=== PATIENT | male | born 1980 | race African-American/Black ===

== ENCOUNTER 2022-06-14 10:31 | Emergency (ER) | payer BC ==
--- OUTSIDE RECORDS SUMMARY | 2022-06-14 10:37 | XMS REPORT | Continuity of Care Document ---
:1980 Author Organization [facility] t Address [address] [place] [address] Care Team Providers Name Role Phone FALLON DAVIS Primary Care Physician Unavailable Only, Ang Db Test Attending Clinician Unavailable Venice Packer MD Attending Clinician VENICE PACKER Attending Clinician Unavailable Doctor Unassigned, [place] Attending Clinician Unavailable Payers Payer Name Policy Type Policy Number Effective Date Expiration Date S ource Problems This patient has no known problems. Allergies, Adverse Reactions, Alerts Allergy Allergy Status Severity Reaction(s) Onset Inactive Treating Comm ents Source Name Type Date Date Clinician NO KNOWN Drug Active Univers ALLERGIE Class ity of [facility] Social History Social Habit Start Date Stop Date Quantity Comments Source Exposure to Yes [facility] SARS-CoV-2 (event) Medica l Branch Alcohol intake 2015-05-28 2015-05-28 [facility] 00:00:00 00:00:00 [facility] Branch Sex Ass[birth year] At [birth year] [facility] 00:00:00 00:00:00 Medical Branch Smoking Status Start Date Stop Date Source Current some day smoker 2015-05-28 00:00:00 [facility] Medications Ordered Filled Start Stop Current Ordering Indication Dosage Frequency Signature Comments Components Source Medication Medication Date Date Medication? Clinician (SIG) Name Name levofloxaci Yes 500mg Take 1 Tab Univers n 2-02 by mouth ity of (LEVAQUIN) 00:00: every 24 Jaime as 500 mg 00 (twenty-fo Medical tablet ur) hours. Branch ibuprofen 2016-0 Yes 600mg Take 1 Tab U nivers (MOTRIN) 2-02 by mouth ity of 600 mg 00:00: every 8 [place] tablet 00 (eight) Medical hours as Branch needed for Pain (scale 4-6). mupirocin 2016-0 Yes Apply to [facility] ers (BACTROBAN 2-02 area(s) 3 ity of OINT) 2 % 00:00: (three) [place] ointment 00 times Medical daily. Branch levofloxaci 2016-0 Yes 500mg Take 1 Tab Univers n 2-02 by mouth ity of (LEVAQUIN) 00:00: every 24 Jaime as 500 mg 00 (twenty-fo Medical tablet ur) hours. Branch ibuprofen 2016-0 Yes 600mg Take 1 Tab U nivers (MOTRIN) 2-02 by mouth ity of 600 mg 00:00: every 8 [place] tablet 00 (eight) Medical hours as Branch needed for Pain (scale 4-6). mupirocin 2016-0 Yes Apply to [facility] ers (BACTROBAN 2-02 area(s) 3 ity of OINT) 2 % 00:00: (three) [place] ointment 00 times Medical daily. Branch levofloxaci 2016-0 Yes 500mg Take 1 Tab Univers n 2-02 by mouth ity of (LEVAQUIN) 00:00: every 24 Jaime as 500 mg 00 (twenty-fo Medical tablet ur) hours. Branch ibuprofen 2016-0 Yes 600mg Take 1 Tab U nivers (MOTRIN) 2-02 by mouth ity of 600 mg 00:00: every 8 [place] tablet 00 (eight) Medical hours as Branch needed for Pain (scale 4-6). mupirocin 2016-0 Yes Apply to [facility] ers (BACTROBAN 2-02 area(s) 3 ity of OINT) 2 % 00:00: (three) [place] ointment 00 times Medical daily. Branch Procedures Procedure Date / Time Performed Performing Clinician [facility] e CONSENT/REFUSAL FOR 2020-12-30 21:55:32 Doctor Unassigned, No [facility] DIAGNOSIS AND Name Medical Branch TREATMENT ASSIGNMENT OF BENEFITS 2020-12-30 21:55:21 Doctor Unassigned, No [facility] Medical Branch Encounters Start End Encounter Admission Attending Care Care Encounter Source Date/Time Date/Time Type Type Clinicians Facility Department ID 2021-04-29 2021-04-29 Outpatient R [facility] [id number] Univers 18:45:00 18:45:00 [id number] ity of [facility] 2020-12-30 2020-12-30 Laboratory Only, Ang Db Test [facility] [id number] Univers 16:56:13 17:11:13 Only Venice Packer [facility] [id number] ity of [place] [id number] Jaime as Arturo?Blea [id number] Sc dical [address] Medical Office Building 2020-12-30 2020-12-30 Outpatient R BIRDIE [facility] [id number] Univers 17:00:00 17:00:00 VENICE ity [facility] 2020-12-30 2020-12-30 Orders Doctor DEONTE [id number] Univers 00:00:00 00:00:00 Only Unassigned, NITA [id number] ity of [place] [facility] [id number] Jaime as [phone] [facility] 009 Branch Results This patient has no known results.
--- NOTE | 2022-06-14 11:48 | RAD REPORT ---
EXAM DESCRIPTION: CT - Stone Protocol - 06/14/2022 11:19 am CLINICAL HISTORY: Left flank pain COMPARISON: 2017 TECHNIQUE: Computed axial tomography of the abdomen pelvis was obtained without oral or IV contrast. Lack of IV and oral contrast limits evaluation of solid organs, appendix, bowel, and vessels. Askew l reformatted images were obtained and reviewed. All CT scans are performed using dose optimization technique as appropriate and may include automated exposure control or mA/KV adjustment according to patient size. FINDINGS: A renal calculus is not seen. An ureteral calculus is not noted. A bladder calculus is not present. No hydrocephalus The liver, spleen, pancreas and adrenals appear grossly normal There is no evidence of diverticulitis. The appendix appears normal Small left inguinal hernia contains fat IMPRESSION: Negative for a genitourinary calculus
[2022-06-14 11:58] LABS: Urine Blood Negative (Negative); Urine Glucose Negative (Negative); Urine Protein Trace (Negative); Urine Specific Gravity 1.025 (1.005-1.030); Urine pH 6.5 (5.0-7.0)
--- NOTE | 2022-06-14 12:05 | EDPHYS ---
Physician Documentation [facility] Name: Michele Dewey Age: 41 yrs Sex: Male : 1980 Arrival Date: 06/14/2022 Time: 10:36 Bed IW5 Private MD: ED Physician Wilner Barr HPI: 06/14 12:03 This 41 yrs old Black Male presents to ER via Ambulatory with complaints of Flank Pain. kb 12:03 The patient complains of pain in the left flank. The pain does not radiate. Onset: The kb symptoms/episode began/occurred last night. Modifying factors: The symptoms are alleviated by remaining still, the symptoms are aggravated by movement, palpation/percussion. Associated signs and symptoms: The patient has no apparent associated signs or symptoms. Severity of pain: At its worst the pain was moderate in the emergency department the pain is unchanged. The patient has not experienced similar symptoms in the past. The patient has not recently seen a physician. Historical: - Allergies: 11:22 NKDA; jl7 - Home Meds: 11:22 None [Active]; jl7 - PMHx: 11:22 None; jl7 - PSHx: 11:22 Right knee; jl7 - Immunization history:: Client reports having NOT received the Covid vaccine. - Social history:: Smoking status: Reported history of juuling and/or vaping. ROS: 11:59 Constitutional: Negative for fever, chills, and weight loss. kb 11:59 Back: Positive for flank pain, on the left. 11:59 All other systems are negative. Exam: 11:59 Constitutional: This is a well developed, well nourished patient who is awake, alert, kb and in no acute distress. Head/Face: Normocephalic, atraumatic. ENT: Moist Mucous membranes Cardiovascular: Regular rate and rhythm with a normal S1 and S2. No gallops, murmurs, or rubs. No pulse deficits. Respiratory: Respirations even and unlabored. No increased work of breathing. Talking in full sentences Abdomen/GI: Soft, non-tender. No distention Skin: Warm, dry with normal turgor. Normal color. MS/ Extremity: Pulses equal, no cyanosis. Neurovascular intact. Full, normal range of motion. Neuro: Awake and alert, GCS 15, oriented to person, place, time, and situation. Moves all extremities. Normal gait. 11:59 Back: pain, is absent, ROM is painful, normal spinal alignment noted, CVA tenderness, that is moderate, is noted on the left. Vital Signs: 11:20 BP 123 / 84; Pulse 75; Resp 17; Temp 98; Pulse Ox 98% ; Weight 102.06 kg; Height 6 ft. jl7 (182.88 cm); Pain 10; 11:20 Body Mass Index 30.52 (102.06 kg, 182.88 cm) jl7 MDM: 10:43 Patient medically screened. kb 12:00 Differential diagnosis: nephrolithiasis, pyelonephritis, UTI, strain. Data reviewed: vital signs, nurses notes. Counseling: I had a detailed discussion with the patient and/or guardian regarding: the historical points, exam findings, and any diagnostic results supporting the discharge/admit diagnosis, lab results, radiology results, the need for outpatient follow up, a family practitioner, to return to the emergency department if symptoms worsen or persist or if there are any questions or concerns that arise at home. 12:00 ED course: Patient is a 41-year-old male who started coughing in bed last night felt a kb pop in the left flank area and has had pain since then. On exam patient has moderate tenderness to left flank. CT stone done and reviewed, no stone seen. Urinalysis does not reveal UTI or blood. Will discharge home on anti-inflammatories and muscle relaxers. Patient in agreement with plan of care. Return precautions given. Verbal understanding received.. 06/14 11:58 Order name: Urine Dipstick-Ancillary; Complete Time: 11:59 EDMS 06/14 10:59 Order name: CT Stone Protocol 06/14 10:59 Order name: Urine Dipstick-Ancillary (obtain specimen); Complete Time: 11:57 kb 06/14 11:48 Order name: CT; Complete Time: 11:49 EDMS Administered Medications: 12:35 Drug: [place] (HYDROcodone-acetaminophen) 10 mg-325 mg 1 tabs Route: PO; jl7 12:39 Follow up: Response: Medication administered at discharge. jl7 Disposition Summary: 06/14/22 12:04 Discharge Ordered Location: Home Condition: Stable kb Diagnosis - Flank pain -left kb - Muscle strain kb Followup: kb - With: Emergency Department - When: As needed - Reason: Worsening of condition Followup: kb - With: Private Physician - When: 2 - 3 days - Reason: Recheck today's complaints, Continuance of care, Re-evaluation by your physician Discharge Instructions: - Discharge Summary Sheet kb - Muscle Strain, [id number] kb - Flank Pain, Adult, [id number] kb Forms: - Medication Reconciliation Form kb - Thank You Letter kb - Antibiotic Education kb - Prescription Opioid Use kb Prescriptions: - Diclofenac Sodium 75 mg Oral tablet,delayed release (DR/EC) - take 1 tablet by ORAL route 2 times per day As needed; 30 tablet; Refills: 0, kb Product Selection Permitted - orphenadrine citrate 100 mg Oral Tablet Sustained Release - take 1 tablet by ORAL route 2 times per day As needed; 20 tablet; Refills: 0, kb Product Selection Permitted Signatures: Dispatcher [employer] Zayda Singh, Bárbara Martínez, RN RN jl7
--- NOTE | 2022-06-14 12:05 | ER ---
Nurse's Notes [facility] Name: Michele Dewey Age: 41 yrs Sex: Male : 1980 Arrival Date: 06/14/2022 Time: 10:36 Bed IW5 Private MD: Diagnosis: Flank pain -left;Muscle strain Presentation: 06/14 11:20 Chief complaint: Patient states: Left flank pain x 1 day, worse with cough. Coronavirus jl7 screen: At this time, the client does not indicate any symptoms associated with coronavirus-19. Ebola Screen: No symptoms or risks identified at this time. Initial Sepsis Screen: Does the patient meet any 2 criteria? No. Patient's initial sepsis screen is negative. Does the patient have a suspected source of infection? No. Patient's initial sepsis screen is negative. Risk Assessment: Do you want to hurt yourself or someone else? Patient reports no desire to harm self or others. Onset of symptoms was June 13, 2022. 11:20 Method Of Arrival: Ambulatory jl7 11:20 Acuity: JAE 3 jl7 Historical: - Allergies: 11:22 NKDA; jl7 - Home Meds: 11:22 None [Active]; jl7 - PMHx: 11:22 None; jl7 - PSHx: 11:22 Right knee; jl7 - Immunization history:: Client reports having NOT received the Covid vaccine. - Social history:: Smoking status: Reported history of juuling and/or vaping. Vital Signs: 11:20 BP 123 / 84; Pulse 75; Resp 17; Temp 98; Pulse Ox 98% ; Weight 102.06 kg; Height 6 ft. jl7 (182.88 cm); Pain 710; 11:20 Body Mass Index 30.52 (102.06 kg, 182.88 cm) jl7 ED Course: 10:36 Patient arrived in ED. rg4 10:42 Zayda Gray FNP-C [facility]. kb 10:42 Wilner Barr MD is Attending Physician. kb 11:22 Triage completed. jl7 11:22 Arm band placed on right wrist. jl7 12:39 No provider procedures requiring assistance completed. Patient did not have IV access jl7 during this emergency room visit. Administered Medications: 12:35 Drug: [place] (HYDROcodone-acetaminophen) 10 mg-325 mg 1 tabs Route: PO; jl7 12:39 Follow up: Response: Medication administered at discharge. jl7 Outcome: 12:04 Discharge ordered by . deanne 12:39 Discharged to home ambulatory. jl7 12:39 Condition: stable 12:39 Discharge instructions given to patient, Instructed on discharge instructions, follow up and referral plans. medication usage, Demonstrated understanding of instructions, follow-up care, medications, Prescriptions given X 2. 12:40 Patient left the ED. jl7 Signatures: Zayda Gray, NETWORK DEVELOPER-C ELZBIETA-Daxa Harris rg4 Bárbara Reyes RN RN jl7
[2022-06-14] MEDS ORDERED: HYDROCODONE/APAP 10/325 TAB ONE (12:41)
[2022-06-14 12:44] VITALS: BP 123/84; TEMP 98; O2SAT 98
== END 2022-06-14 12:40 | disposition home or self-care (01) ==
LOC: ER 10:31
DX: S39.011A Strain of muscle, fascia and tendon of abdomen, initial encounter (principal)
CPT/HCPCS: 74176; 76377; 81003; 99283